=== PATIENT | female | born 1930 | race Caucasian/White ===

== ENCOUNTER 2020-06-12 12:56 | Outpatient (CLI) | payer MEDICARE, OTHER ==
[~2020-06-12 12:56] MED LIST: AMLO-211 PO; DULO30CA2 PO; HYDR1TAB53 PO; LEVO100T5 PO; LISI5TAB7 PO; LOVA40TA2 PO; METO25TA91 PO; NORT25CA78 PO; ROPI1TAB4 PO; WARF-36 PO; WARF2.5T32 PO
[2020-06-12 14:22] LABS: BASOPHILS % (AUTO) 1 % (0-1); EOSINOPHILS % (AUTO) 2 % (1-7); LYMPHOCYTES % (AUTO) 28 % (22-44); MEAN CORPUSCULAR HEMOGLOBIN 24.1 pg (27.0-34.8); MEAN CORPUSCULAR HGB CONC 30.9 g/dL (32.4-35.8); MEAN PLATELET VOLUME 6.9 fL (7.4-10.4); MONOCYTES % (AUTO) 11 % (2-9); NEUTROPHILS % (AUTO) 58 % (42-75); PLATELET COUNT 224 x10^3/uL (130-400); RED CELL DISTRIBUTION WIDTH 19.9 % (9.6-15.2)
[2020-06-12 14:24] LABS: ALANINE AMINOTRANSFERASE 17 U/L (12-78); ALBUMIN 3.1 g/dL (3.4-5.0); ANION GAP 4 mmol/L (5-15); CALCIUM 9.2 mg/dL (8.5-10.1); CHLORIDE 112 mmol/L (98-107); CREATININE 1.85 mg/dL (0.55-1.02)
[2020-06-12 14:25] LABS: MD NO
[2020-06-12 14:26] LABS: ALKALINE PHOSPHATASE 52 U/L (45-117); BILIRUBIN,TOTAL 0.3 mg/dL (0.2-1.0)
[2020-06-12] MEDS ORDERED: CARV12.52 PO (15:34)
[2020-06-12] MEDS ORDERED: FERR324T5 PO (15:43)
== END 2020-06-12 23:59 | disposition home or self-care (01) ==
LOC: STAR 12:56
PROVIDERS: ATTEND Internal Medicine Geriatric Medicine
DX: Z01.818 Encounter for other preprocedural examination (principal); D64.9 Anemia, unspecified; Z20.822 Contact with and (suspected) exposure to COVID-19
CPT/HCPCS: 36415; 80053; 85025; 93005; U0003

== ENCOUNTER 2020-06-16 05:30 | Day surgery (SDC) | payer MEDICARE, OTHER ==
[~2020-06-16] VITALS: Ht 167.6 cm; Wt 75.0 kg
[~2020-06-16 05:30] MED LIST changes: +CARV12.52 PO; +FERR324T5 PO
[2020-06-16] MEDS ORDERED: CHLORHEXIDINE 15 ML UDC PO ONE (06:00)
[2020-06-16] MEDS ORDERED: LACTATED RINGERS 1,000 ML IV SCH (06:00)
[2020-06-16 06:09] VITALS: BP 163/84
[2020-06-16 07:08] LABS: INTERNATIONAL NORMALIZED RATIO 1.01 (0.93-1.1); PROTHROMBIN TIME 10.8 Seconds (9.6-11.5)
[2020-06-16] MEDS ORDERED: PROPOFOL 50 ML ONE (07:21)
[2020-06-16] MEDS ORDERED: ONDANSETRON 2MG/ML, 2ML IVPush PRN (07:30)
[2020-06-16] MEDS ORDERED: HYDROmorphone 1 MG/ML, 1ML INJ IVPush PRN (07:30)
[2020-06-16] MEDS ORDERED: OXYcodone 5 MG/5 ML ORAL.SOL UDC PO PRN (07:30)
[2020-06-16] MEDS ORDERED: LABETALOL 5MG/ML, 20ML IV PRN (07:30)
[2020-06-16] MEDS ORDERED: ACETAMINOPHEN 325 MG TABLET PO PRN (07:30)
[2020-06-16] MEDS ORDERED: PROMETHAZINE 25 MG/ML, 1ML IVPush PRN (07:30)
[2020-06-16] MEDS ORDERED: FENTANYL PF 100 MCG/2ML IV PRN (07:30)
[2020-06-16] MEDS ORDERED: hydrALAzine 20 MG/ML, 1ML IV PRN (07:30)
[2020-06-16] MEDS ORDERED: EPHEDRINE 50 MG/ML, 1ML IVPush PRN (07:30)
[2020-06-16] MEDS ORDERED: PROPOFOL 10 MG/ML, 20ML ONE (08:25)
[2020-06-16] MEDS ORDERED: ACETAMINOPHEN 650 MG/20.3 ML UDC ONE (09:10)
[2020-06-16] MEDS ORDERED: OXYcodone 5 MG/5 ML ORAL.SOL UDC ONE (09:10)
[2020-06-16] MEDS ORDERED: FENTANYL PF 100 MCG/2ML ONE (09:10)
[2020-06-16] MEDS ORDERED: ACET325T26 PO (09:28)
== END 2020-06-16 10:13 | disposition home or self-care (01) ==
LOC: OUT 05:30
PROVIDERS: ATTEND Internal Medicine
DX: K31.819 Angiodysplasia of stomach and duodenum without bleeding (principal); D12.0 Benign neoplasm of cecum; C18.2 Malignant neoplasm of ascending colon; D12.2 Benign neoplasm of ascending colon; K21.9 Gastro-esophageal reflux disease without esophagitis; I48.91 Unspecified atrial fibrillation; I12.9 Hypertensive chronic kidney disease with stage 1 through stage 4 chronic kidney disease, or unspecified chronic kidney disease; N18.4 Chronic kidney disease, stage 4 (severe); I25.10 Atherosclerotic heart disease of native coronary artery without angina pectoris; E78.5 Hyperlipidemia, unspecified; D64.9 Anemia, unspecified; Z88.8 Allergy status to other drugs, medicaments and biological substances; Z79.01 Long term (current) use of anticoagulants; Z79.899 Other long term (current) drug therapy; Z87.891 Personal history of nicotine dependence; Z98.890 Other specified postprocedural states
CPT/HCPCS: 36415; 43270; 45381; 45385; 85610; 85730; 88305; J2704; J3010; J7120